=== PATIENT | female | born 1965 | race Caucasian/White ===

== ENCOUNTER → 2022-05-28 | Outpatient (CLI) | payer OTHER, SELFPAY ==
[2022-05-28 10:34] LABS: Absolute Lymphocyte Count 5.12 X10^3/uL (0.83-4.51); Absolute Neutrophil Count 7.4 X10^3/uL (2.0-7.7); Basophil# 0.06 X10^3/uL; Basophil% 0.4 % (0-1); Eosinophils% 2.2 % (0-5); Hematocrit 43.5 % (37-47); Hemoglobin 13.9 g/dL (12.0-15.0); Lymphocyte # 5.12 X10^3/ul (0.83-4.51); Lymphocyte % 37.6 % (19-41); Mean Corpuscular Volume 87.7 fL (81-99); Mean Platelet Vol. 9.2 fl (6.2-12.0); Monocyte# 0.67 X10^3/uL; Monocyte% 4.9 % (0-10); NRBC Flagged by Analyzer 0 % (0-5); Neutrophil % 54.5 % (47-70); POSITIVE DIFFERENTIAL YES; Platelet Count 408 K/mm3 (150-450); RBC Distribution Width CV 13.7 % (11.6-14.6); RBC Distribution Width SD 43.3 fl (35.1-43.9); Red Blood Count 4.96 M/mm3 (4.2-5.4); White Blood Count 13.6 K/mm3 (4.4-11.0)
[2022-05-28 10:43] LABS: Differential Indicated SCAN CRITERIA MET
[2022-05-28 11:06] LABS: ALB/GLOB Ratio 0.8 RATIO (0.9-2.4); AST(SGOT) 19 U/L (15-37); Alanine Aminotransfer ALT/SGPT 20 U/L (13-56); Albumin, Serum 3.5 g/dL (3.2-5.0); Alkaline Phosphatase 98 U/L (45-117); Anion Gap 6 (5-15); BUN 19 mg/dL (7-18); BUN/Creat Ratio 20.2 RATIO (10-20); Chloride 100 mmol/L (98-107); Cholesterol 192 mg/dL (200); Creatinine, Serum 0.94 mg/dL (0.55-1.02); EST Glomerular Filtration Rate 65 mL/min (>60); Est Glom Filt Rate - Afr Amer 79 mL/min (>60); Globulin 4.4 g/dL (2.2-4.2); Glucose 105 mg/dL (74-106); High Density Lipoprotein 48 mg/dL; Potassium 3.9 mmol/L (3.5-5.1); Protein, Total 7.9 g/dL (6.4-8.2); Sodium Level 137 mmol/L (136-145); Triglycerides 217 mg/dL; Very Low Density Lipoprotein 43 mg/dL (5-40)
--- NOTE | 2022-05-28 14:50 | BI_ITS ---
MAMMOGRAPHY - BILATERAL SCREENING REASON FOR EXAM: Female, 57 years old. Routine annual screening examination. PERTINENT HISTORY: Non-contributory. TECHNIQUE: Digital bilateral breast christy (3D mammographic acquisition) in the CC and MLO projections. 2-D mediolateral oblique (MLO) and craniocaudad (CC) views of both breasts were obtained. CAD: Full Field Digital Mammography with Computer Added Detection was performed. COMPARISON: Comparison is made with prior examination dated March 25, 2011. FINDINGS: Breast Composition: The breasts are almost entirely fatty. There are no dominant masses or suspicious calcifications. Small benign appearing bilateral axillary lymph nodes. No other significant abnormalities are identified. There has been no significant change since the prior study. BI/SCRN MAMM (CAD)W/CHRISTY BILAT IMPRESSION: Stable bilateral screening mammogram. Yearly follow-up mammogram recommended. (A) ASSESSMENT CATEGORY: BIRADS Category 2: Benign. A letter regarding these results will be sent to the patient by the facility within 30 days. Approximately 10% of breast cancers are not detected by mammography. A normal mammogram should not delay biopsy of a clinically suspicious abnormality. [id number] Electronically Signed: Kirit Gutierrez MD at 15:45 EDT ,
== END | disposition home or self-care (01) ==
LOC: OPBI 14:49
PROVIDERS: PCP Internal Medicine; Referring Provider Internal Medicine; Visit Provider Internal Medicine
DX: Z12.31 Encounter for screening mammogram for malignant neoplasm of breast (principal); Z13.6 Encounter for screening for cardiovascular disorders
CPT/HCPCS: 36415; 77063; 77067; 80053; 80061; 85025

== ENCOUNTER 2022-05-29 09:57 | Outpatient (RCR) | payer OTHER, SELFPAY | END 2022-05-30 23:59 | LOC: NS 09:57 | PROVIDERS: PCP Internal Medicine; Visit Provider Internal Medicine | DX: Z71.3 Dietary counseling and surveillance (principal) | CPT/HCPCS: 97802 ==

== ENCOUNTER 2022-06-26 08:58 | Outpatient (RCR) | payer OTHER, SELFPAY | END 2022-06-29 23:59 | LOC: NS 08:58 | PROVIDERS: PCP Internal Medicine; Referring Provider Internal Medicine; Visit Provider Internal Medicine | DX: Z71.3 Dietary counseling and surveillance (principal); E66.9 Obesity, unspecified | CPT/HCPCS: 97803 ==

== ENCOUNTER 2022-06-27 13:30 | Outpatient (RCR) | payer OTHER, SELFPAY ==
--- NOTE | 2022-05-29 17:28 | HP.PTEVAL_ITS ---
Patient's Visit Information LEONEL CAICEDO is a 57 year old F referred to Physical Therapy by Dr. Kristi Burton MD with a diagnosis of Left Shoulder Pain. Date of Evaluation: 05/29/22 Physical Therapist: Rosie Harris DPT - Visit Plan Frequency: 2x /Week Duration: 4 Weeks Plan: Focus on shoulder ROM and scapular strength/stabilization- mod of US and E-stim for pain mgmt. HEP Given IE: Posture, table walk away - Subjective Patient reports that she has left shoulder issues for about a month- insidious onset- she had issues on the right for about a week and it went away. She has issues anywhere away from her body she pain. Worst: 10/09 Agg: reaching out and grabbing something or sleeping on the left side Eases: hot showers, aleve, rest Best: 10. Dull and achy when resting and then sharp shooting when she moves it. Pain is located in the anterior shoulder then radiates to the neck, chest and down to the elbow. No MAY, blurred vision or dizziness. No issues with finger dexterity or cad librarian strength. No N/T- Left Hand Dominate. Sleep: disturbed- rolls over on it and it wakes her up and can't put it above her head when she is on her belly, No x-rays or MRI just sent to PT. No injections but did take a predisone dose pack- unsure if it helped. She has not had issues with this shoulder before. She is more sedentary- she does not work outside of her home. PMHx/Meds: no changes since MD philip 05/22/22. - Objective Posture: FH, RS- can correct with verbal cues Palpation: tender to touch throughout ROM: Cervical: WNL, Elbow/Wrist/Hand: WFL, Shoulder: AROM: Flexion: 140 degrees Abd: 120 degrees, IR: to pocket, ER: 30 degrees, PROM: guarded and very similar numbers, Elbow: WFL pain Strength: Scap: fair, Shoulder Isometric: 4+/5 with pain, Elbow: isometric: 4+/5 with pain, Correctional Supervisor Lieutenant: equal- 60 lbs. 60/60 - Special Tests L Shoulder Lift Off Test - Subscapular Tear: Positive L Shoulder Empty Can - SS: Positive L Shoulder Belly Press - SupScap: Positive L Shoulder Neer - Impingement: Positive L Shoulder Pearson Chas - Impingement: Positive - Balance/Special Test Scores Quick DASH Score: 22.7250 - Goals Goal 1:: Patient will be I with HEP and progression Goal Time Frame: 4-6 Weeks Goal 2:: Patient will demo full AROM of the left shoulder Goal Time Frame: 4-6 Weeks Goal 3:: Patient will maintain proper posture t/o tx session to demo increased scap s/s Goal Time Frame: 4-6 Weeks Goal 4:: Patient will report 80% improvement Goal Time Frame: 4-6 Weeks - Rehabilitation Potential Physical Therapy Diagnosis: Patient presents with hypomobility- she has decreased ROM, scapular strength/stabilization and muscular endurance leading to increased pain with ADL's. Rehabilitation Potential: Fair - Anticipated Interventions Patient/Client Instruction: Educate patient on: Benefits of Fitness Program Therapeutic Exercise to Include: Strength training, Endurance training, Coordination, Agility training, Body mechanics, Postural training, Flexibilty training, Neuromotor development, Passive ROM, Active ROM, Dynamic Lumbar Stabilization, Scapular Strength/Stabilization TENS: Yes Cryotherapy (ice pack, ice massage): Yes Thermo therapy (hot pack): Yes Ultrasound (thermal/non thermal): Yes Thank you for the opportunity to evaluate your patient. For Medicare and Medicare HMO plans, please review the plan of care and approve it. It will need to be FAXED BACK to us at [phone] for Medicare purposes. For Medicare only, by signing this I certify the plan of care. Please let me know if there are questions or concerns regarding this plan of care. Physician Signature: Date:
--- NOTE | 2022-07-02 09:26 | HP.PTDCSUM ---
It has been my pleasure to treat LEONEL CAICEDO referred by Dr. Kristi Burton MD, with the diagnosis of Left Shoulder Pain for a total of 9 visit(s). Discharge Date: 06/27/22 Please see the following information for a summary of their discharge status. Subjective: Pt. reports overall about the same. She has not had much improvement in her symptoms. She reports being HEP compliant. L SH Pain Intensity (Out of 10): 3 % Improvement: 0 Objective/Function: ROM: Pt. has full ROM of her R shoulder, but has pain starting in mid range and gets worse with further OH motion, abd is slightly limited to 150deg of abd again pain limiting. Extension and IR motions are normal. She does have some increase in symptoms with functional ER behind her head. MMT: flexion 4/5 increase NW, abd 4/5 increase NW, ER 4+/5 increase NW, IR 5/5 NE, ext 5/5 NE. She does not seem like she has a large RTC tear, but is not progressing as expected with a more tendinosis or impingement pathology. At this point in time I would recommend following up with physician to determine best course of action. Goal 1:: Patient will be I with HEP and progression Goal Progress: Goal Met Goal 2:: Patient will demo full AROM of the left shoulder Goal Progress: Goal Met Goal 3:: Patient will maintain proper posture t/o tx session to demo increased scap s/s Goal Progress: Progressing Goal 4:: Patient will report 80% improvement Goal Progress: Not Progressing Plan: Pt. to follow up with physician as she is not progressing as expected with PT. Discharge Comments: Pt. will be DC to physician as pain has not improved with PT at this point in time. I want her to continue to work on exercises at are minimally painful until following up with physician. Pt. consents. If there are questions or concerns regarding this patient's physical therapy, please feel free to call me at [phone]. Thank you for the referral of this patient. Sincerely, Aaron Jimenes Sipos, DPT Balance/Gait/Functional tests - Balance/Special Test Scores Quick DASH Score: 31.8175
--- NOTE | 2022-09-15 12:56 | HP.PTDCSUM ---
Discharge Summary D/C summary: It has been my pleasure to treat LEONEL CAICEDO referred by Dr. Kristi Burton MD, with the diagnosis of Left Shoulder Pain for a total of 9 visit(s). Discharge Date: 06/27/22 Please see the following information for a summary of their discharge status. Subjective Subjective: Pt. reports overall about the same. She has not had much improvement in her symptoms. She reports being HEP compliant. Pain L SH: Pain Intensity (Out of 10): 3 Overall Improvement % Improvement: 0 Objective Objective/Function: ROM: Pt. has full ROM of her R shoulder, but has pain starting in mid range and gets worse with further OH motion, abd is slightly limited to 150deg of abd again pain limiting. Extension and IR motions are normal. She does have some increase in symptoms with functional ER behind her head. MMT: flexion 4/5 increase NW, abd 4/5 increase NW, ER 4+/5 increase NW, IR 5/5 NE, ext 5/5 NE. She does not seem like she has a large RTC tear, but is not progressing as expected with a more tendinosis or impingement pathology. At this point in time I would recommend following up with physician to determine best course of action. Goals Goal 1:: Patient will be I with HEP and progression Goal Progress: Goal Met Goal 2:: Patient will demo full AROM of the left shoulder Goal Progress: Goal Met Goal 3:: Patient will maintain proper posture t/o tx session to demo increased scap s/s Goal Progress: Progressing Goal 4:: Patient will report 80% improvement Goal Progress: Not Progressing Plan Plan: Pt. to follow up with physician as she is not progressing as expected with PT. D/C Information Discharge Comments: Pt. will be DC to physician as pain has not improved with PT at this point in time. I want her to continue to work on exercises at are minimally painful until following up with physician. Pt. consents. d/c sentence: If there are questions or concerns regarding this patient's physical therapy, please feel free to call me at [phone]. Thank you for the referral of this patient. Sincerely, Rosie Harris, DPT Balance/Gait/Functional tests Balance/Special Test Scores Quick DASH Score: 31.8175
== END 2022-06-27 19:00 | disposition home or self-care (01) ==
LOC: PT 13:30
PROVIDERS: PCP Internal Medicine; Referring Provider Internal Medicine; Visit Provider Internal Medicine
DX: M25.512 Pain in left shoulder (principal)
CPT/HCPCS: 97014; 97110; 97161; 97164; G0283

== ENCOUNTER 2022-07-09 08:24 | Day surgery (SDC) | payer OTHER, SELFPAY ==
[2022-07-09] VITALS (7 sets, daily range): BP systolic 122–150; BP diastolic 48–80; PULSE 64–81; RESP 16–17; TEMP 36.4–36.9; O2SAT 94–100; BMI 37.4
--- NOTE | 2022-07-09 08:35 | PCM.HP.BLA ---
History and Physical Date of Admission: 07/09/22 Date of Service:? 06/09/22 MR#: [id number] Acct: [id number] Name:LEONEL FRANCISCO Rep #: [id number] : 1965 ? ? Provider: Dr. Lillian Ardon MD Age/Sex:? 57/F ? ? Location: [facility] Status: Signed Intake Vital Signs ? 05/30/2311:43 Height 5 ft 3.5 in Weight: 223 lb 12.8 oz Intake Visit Reasons:?Consult Chief Complaint: CONSULT Allergies No Known Allergies Allergy (Unverified 05/21/22 13:34) PFSH Medical History? Allergies Arthritis COVID-19 Hx of headache Irritable bowel syndrome Surgical History? History of incision and drainage History of salpingectomy Family History? Sister AsthmaMother Multiple sclerosisBrother Depression SuicideFather Cancer ?? ? prostateBrother Diabetes Social History? household members:? spouse current occupational status:? unemployed Smoking Status:? Former smoker quit date: 03/02/87 pack-years: 1 Electronic Cigarette Use:? not used alcohol intake:? never substance use type:? does not use do you feel safe at home:? Yes HPI HPI HPI: 57-year-old female presents for colonoscopy.? Patient never had previous colonoscopy denies any family history of colon cancer.? Patient has bowel movements about every other day denies any blood.? Patient does have occasional IBS patient denies any GERD symptoms or nausea or vomiting. ROS General General: No weight change, appetite, fatigue, colon cancer, breast cancer or weakness HEENT HEENT: No difficulty swallowing, eye injury, eye surgery, swollen glands or hoarseness Endo Endocrine: No thyroid disease, diabetes mellitus, thyroid cancer, Hair loss, heat intolerance or cold intolerance Skin Skin: No rash or changing moles Breast Breast: No left breast lump, right breast lump, nipple discharge, breast pain, abnormal mammogram, abnormal US or breast enlargement Musc Musculoskeletal: No back problems, arthritis, rheumatoid arthritis, gout or joint pain Cardio Cardiovascular: No murmur, pacemaker, heart disease, atrial fibrillation, high blood pressure, heart attack, heart stent, palpitations, shortness of breat with exertion or chest pain Psych Psychiatric: No depression, anxiety or hearing voices Resp Respiratory: No shortness of breath, No sleep apnea, No cough, No COPD, No asthma, No emphysema and No wheezing Gastro Gastrointestinal: No abdominal pain, No nausea or vomiting, No diarrhea, No constipation, No blood in stool, No acid reflux, No hemorrhoids, No ulcers, No gallbladder problem and No black,tarry stools Lencho Hematologic: No blood thinners, No blood disorders, No bleeding, No anemia and No blood clots Neuro Neurologic: No system reviewed and no additional complaints, except as documented, No as per HPI, No abnormal gait, No abnormal hearing, No abnormal movements, No abnormal speech, No behavioral changes, No burning sensations, No confusion, No convulsions, No disequilibrium, No dizziness, No localized weakness, No frequent falls, No headache(s), No lack of coordination, No loss of vision, No memory loss, No numbness, No other visual disturbances, No radicular pain, No restless legs, No sensory deficit, No syncope, No tingling, No tremor(s), No weakness and No other Exam Const General: cooperative, healthy appearing and no acute distress [facility] Head: normal to inspection Resp Effort & Inspection: normal respiratory effort Cardio Rate: regular rate GI Inspection: non-distended Palpation: soft, no guarding and nontender Skin General: no rashes or lesions noted Neuro General: patient oriented x3 Extrem General: no clubbing, cyanosis or edema Psych Affect: normal affect Assessment and Plan Assessment and Plan (1) Encounter for screening for malignant neoplasm of colon: ?Status:?Acute Plan I have discussed the above with the patient. I have offered the patient colonoscopy for evaluation.?Patient prefers Thursday I have explained the risks/benefits of the procedure and described the procedure.? I have discussed the risks with the patient, including but not limited to:? infection, bleeding, perforation of the GI tract requiring emergency surgery, inability to complete the procedure, injury to any internal organs, complications of anesthesia, etc. - the patient understands and agrees to proceed. I have answered all the patient's questions to the patient's satisfaction and the patient has no further questions. The patient has been given instructions for the colon cleansing preparation.? 1 day of clears, MiraLAX/Dulcolax split prep. Lillian Ardon M.D. Pager: [phone] [facility] [address] [place] [address], [address] [place] [address] Office: [phone] Coding Level of Care Code Off vis,new,level 2 Diagnoses Encounter for screening for malignant neoplasm of colon? Z12.11 06/10/22 1304 <Electronically signed by Lillian Ardon MD> Date Lillian Ardon MD
[2022-07-09] MEDS: Lactated Ringers 1,000 ML 15 ML IV (08:47)
--- NOTE | 2022-07-09 09:30 | COLBX_PTH ---
PATIENT: LEONEL CAICEDO LOC: EN U#:[id number] AGE/SX: 57/F ROOM: RE07/09/[address]: Dr. Lillian Ardon MD : 1965 BED: DIS: 07/09/2022 SPEC #: [id number] RECD: 07/09/22 10:20 STATUS: FARHAT REQ #: [id number] RENEE: 07/09/22 09:[address]: Lillian Ardon DEPT: SURGICAL PATHOLOGY RECD BY: Yadira Nathan ENTERED: 07/09/22 13:00 SP TYPE: COLON BX OTHR DR: Dr. Kristi Burton MD Tissues: Rectum, NOS Procedures: Surgery Specimen Level IV HEADER OPERATION: Colonoscopy (MAC), biopsy PRE-OP DIAGNOSIS: Screening TISSUE SUBMITTED: Rectal polyp biopsy MICROSCOPIC DIAGNOSIS Rectal polyp, biopsy: Fragments of tubular adenoma. SJ:yifan 07/10/2022 MICROSCOPIC DESCRIPTION Slides are reviewed. GROSS DESCRIPTION Received in fixative is one container labeled with the patient's name and designated rectal polyp biopsy. The specimen consists of two irregular fragments of light hodge soft tissue that in aggregate measure 0.4 x 0.2 x 0.1 cm. The specimen is totally submitted in one cassette. / SJ:rg 07/09/2022 TC:1 CPT: 41917
--- NOTE | 2022-07-09 09:52 | OP.COLON_ITS ---
Patient Name: Pallavi Oliveira Procedure Date: 07/09/2022 9:09 AM Date of : 1965 Age: 57 Procedure: Colonoscopy Indications: Screening for colorectal malignant neoplasm Providers: Lillian Ardon MD Referring MD: Lillian Ardon MD Medicines: Monitored Anesthesia Care Patient Profile: This is a 57 year old female. Last Colonoscopy: none. The patient's first colonoscopy is today. Complications: No immediate complications. Procedure: Pre-Anesthesia Assessment: - Prior to the procedure, a History and Physical was performed, and patient medications and allergies were reviewed. The patient's tolerance of previous anesthesia was also reviewed. The risks and benefits of the procedure and the sedation options and risks were discussed with the patient. All questions were answered, and informed consent was obtained. Prior Anticoagulants: The patient has taken no previous anticoagulant or antiplatelet agents. ASA Grade Assessment: Per anesthesia. After reviewing the risks and benefits, the patient was deemed in satisfactory condition to undergo the procedure. After I obtained informed consent, the scope was passed under direct vision. Throughout the procedure, the patient's blood pressure, pulse, and oxygen saturations were monitored continuously. The pediatric colonoscope was introduced through the anus and advanced to the cecum, identified by the appendiceal orifice, ileocecal valve and palpation. The colonoscopy was performed without difficulty. The patient tolerated the procedure well. The quality of the bowel preparation was good. Scope In: 9:18:04 AM Scope Withdrawal Time 0 hours 14 minutes 8 seconds Scope Out: 9:44:01 AM Total Procedure Duration Time 0 hours 25 minutes 57 seconds Findings: The perianal and digital rectal examinations were normal. A less than 5 mm polyp was found in the rectum. The polyp was sessile. The polyp was removed with a cold biopsy forceps. Resection and retrieval were complete. The exam was otherwise without abnormality. Impression: - One less than 5 mm polyp in the rectum, removed with a cold biopsy forceps. Resected and retrieved. - The examination was otherwise normal. Recommendation: - Discharge patient to home. - Resume previous diet. - Continue present medications. - Await pathology results. - Repeat colonoscopy in 5-10 years for surveillance based on pathology results. Procedure Code(s): --- Professional --- 97330, PT, Colonoscopy, flexible; with biopsy, single or multiple Diagnosis Code(s): --- Professional --- Z12.11, Encounter for screening for malignant neoplasm of colon K62.1, Rectal polyp CPT copyright 2017 [employer]. All rights reserved. The codes documented in this report are preliminary and upon fire investigator review may be revised to meet current compliance requirements. MD Lillian Moreland MD 07/09/2022 9:52:01 AM This report has been signed electronically. Number of Addenda: 0 Note Initiated On: 07/09/2022 9:09 AM
--- NOTE | 2022-07-09 09:53 | OP.CCLET_ITS ---
07/09/2022 Kristi Burton Md Re : Colonoscopy procedure for Pallavi Oliveira Dear Josephine This procedure was performed on Saturday, July 09, 2022. My impressions and recommendations are as follows: Impressions : - One less than 5 mm polyp in the rectum, removed with a cold biopsy forceps. Resected and retrieved. - The examination was otherwise normal. Recommendations : - Discharge patient to home. - Resume previous diet. - Continue present medications. - Await pathology results. - Repeat colonoscopy in 5-10 years for surveillance based on pathology results. My findings are described in the full procedure note, which is enclosed. If I can be of further assistance, please feel free to contact me at Doctor phone number(s): , Work: . Sincerely, MD Lillian Moreland MD 07/09/2022 9:52:01 AM This report has been signed electronically.
== END 2022-07-09 10:35 | disposition home or self-care (01) ==
LOC: EN 08:25 → AC 08:26
PROVIDERS: PCP Internal Medicine; Referring Provider Internal Medicine; Visit Provider Surgery
PROC: 0DJD8ZZ Inspection of Lower Intestinal Tract, Via Natural or Artificial Opening Endoscopic (ICD-10-PCS; CPT 45378; principal; 2022-07-09 09:25)
DX: Z12.11 Encounter for screening for malignant neoplasm of colon (principal); Z87.891 Personal history of nicotine dependence; K58.9 Irritable bowel syndrome, unspecified; D12.8 Benign neoplasm of rectum
CPT/HCPCS: 45380; 88305; J7120; J2405

== ENCOUNTER 2023-01-26 15:00 | Outpatient (RCR) | payer OTHER, SELFPAY | END 2023-01-29 23:59 | LOC: NS 15:00 | PROVIDERS: PCP Internal Medicine; Referring Provider Internal Medicine; Visit Provider Internal Medicine | DX: Z71.3 Dietary counseling and surveillance (principal); E66.9 Obesity, unspecified | CPT/HCPCS: 97803 ==

== ENCOUNTER 2023-02-18 14:56 | Outpatient (RCR) | payer OTHER, SELFPAY | END 2023-03-01 23:59 | LOC: NS 14:56 | PROVIDERS: PCP Internal Medicine; Referring Provider Internal Medicine; Visit Provider Internal Medicine | DX: Z71.3 Dietary counseling and surveillance (principal); E66.9 Obesity, unspecified | CPT/HCPCS: 97803 ==

== ENCOUNTER 2023-03-23 14:01 | Outpatient (RCR) | payer OTHER, SELFPAY | END 2023-04-01 23:59 | LOC: NS 14:01 | PROVIDERS: PCP Internal Medicine; Referring Provider Internal Medicine; Visit Provider Internal Medicine | DX: Z71.3 Dietary counseling and surveillance (principal); E66.9 Obesity, unspecified | CPT/HCPCS: 97803 ==

== ENCOUNTER 2023-05-04 14:47 | Outpatient (RCR) | payer OTHER, SELFPAY | END 2023-05-31 23:59 | LOC: NS 14:47 | PROVIDERS: PCP Internal Medicine; Referring Provider Internal Medicine; Visit Provider Internal Medicine | DX: Z71.3 Dietary counseling and surveillance (principal); E66.9 Obesity, unspecified | CPT/HCPCS: 97803 ==

== ENCOUNTER 2023-06-18 08:04 | Outpatient (RCR) | payer OTHER, SELFPAY | END 2023-06-30 23:59 | LOC: NS 08:04 | PROVIDERS: PCP Internal Medicine; Referring Provider Internal Medicine; Visit Provider Internal Medicine | DX: Z71.3 Dietary counseling and surveillance (principal); E66.9 Obesity, unspecified; Z68.38 Body mass index [BMI] 38.0-38.9, adult | CPT/HCPCS: 97803 ==